=== PATIENT | female | born 1965 | race African-American/Black ===

== ENCOUNTER 2019-06-09 18:30 | Emergency (ER) | payer OTHER ==
[2019-06-09 18:42] VITALS: BP 142/85; PULSE 74; TEMP 98.6; BMI 34.4
--- NOTE | 2019-06-09 18:46 | PDOC ---
History of Present Illness - General Chief Complaint: Blood Pressure Problem Stated Complaint: HYPERTENTION Time Seen by Provider: 06/09/19 18:44 History Source: Patient Exam Limitations: No Limitations - History of Present Illness Initial Comments: 06/09/19 18:55 Drink patient is here with complaints of right-sided face pain, earache pain and known dental pain. States had 2 teeth pulled on the left side of her mouth last week and had onset of pain and some mild swelling to her face today. Feels is probable posterior right lower molar causing some inflammation to the gums. No fever, no sore throat, no cough. Is this a multiple visit Asthma Patient?: No Timing/Duration: reports: getting worse, intermittent Past History - Travel Traveled outside of the country in the last 30 days: No Close contact w/someone who was outside of country & ill: No - Past Medical History Allergies/Adverse Reactions: Allergies Allergy/AdvReac Type Severity Reaction Status Date / Time No Known Allergies Allergy Verified 06/09/19 18:42 Home Medications: Ambulatory Orders Fluticasone Propionate [Flovent Diskus] 100 mcg IH DAILY 06/14/16 Meloxicam 7.5 mg PO DAILY 06/14/16 Amoxicillin - [Amoxicillin 500mg Capsule -] 500 mg PO TID #21 capsule 06/09/19 Naproxen [Naprosyn -] 500 mg PO BID #30 tablet 06/09/19 Asthma: Yes COPD: No HTN: Yes Other medical history: arthritis - Psycho Social/Smoking Cessation Hx Smoking History: Never smoked Hx Alcohol Use: Yes (occasional) Drug/Substance Use Hx: No Review of Systems - Review of Systems Able to Perform ROS?: Yes Is the patient limited American proficient: Yes Constitutional: Yes: Symptoms Reported, See HPI, Malaise. No: Fever HEENTM: Yes: Symptoms Reported, See HPI, Ear Pain, Mouth Pain, Dental Problems Respiratory: Yes: See HPI. No: Symptoms reported : Yes: See HPI. No: Symptoms Reported Musculoskeletal: Yes: See HPI. No: Symptoms Reported All Other Systems: Reviewed and Negative *Physical Exam - Vital Signs Last Vital Signs Temp Pulse Resp BP Pulse Ox 98.6 F 74 18 142/85 99 06/09/19 18:38 06/09/19 18:38 06/09/19 18:38 06/09/19 18:38 06/09/19 18:38 - Physical Exam General Appearance: Yes: Nourished, Appropriately Dressed, Apparent Distress, Mild Distress, Moderate Distress HEENT: positive: EOMI, ZITA, Normal ENT Inspection, TMs Normal, Nasal Congestion , Other (Mild swelling and tenderness to the inferior outer aspect of right lower last molar. No fluctuance, no abscess but is tender to palpation. Has some mild swelling to the right lower cheek without palpable abscess.). 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 Will start on amoxicillin to cover potential early abscess/ infection and encourage continued NSAIDs. Patient will see dentist tomorrow Discharge - Discharge Information Problems reviewed: Yes Clinical Impression/Diagnosis: Toothache Condition: Stable Disposition: HOME - Admission No - Additional Discharge Information Prescriptions: Amoxicillin - [Amoxicillin 500mg Capsule -] 500 mg PO TID #21 capsule Naproxen [Naprosyn -] 500 mg PO BID #30 tablet - Follow up/Referral - Patient Discharge Instructions Patient Printed Discharge Instructions: DI for Dental Pain Additional Instructions: maddy [facility] AT [address] [address] [email or web address] PATIENT CARE: [phone] Rest, drink lots of fluids: Teas, water, soups Saltwater gargles/ keep mouth clean and rinse after each meal May use wet teabag for pain relief to area Avoid hard chewing foods, stick to ice cream, Jell-O, yogurt etc. Tylenol or Motrin for fever and pain Complete all medication as prescribed Seek dental appointment as soon as possible for evaluation of dental injury/pain Followup with private physician in one to 2 days as needed Return to emergency department for worsened symptoms, fevers, swelling to face or worsened pain - Post Discharge Activity Work/Back to School Note: Back to Work
[2019-06-09] MEDS ORDERED: KETOROLAC TROMETHAMINE 60 MG/2 ML VIAL IM ONE (18:53)
[2019-06-09] MEDS ORDERED: KETOROLAC TROMETHAMINE 60 MG/2 ML VIAL ONE (18:54)
== END 2019-06-09 19:06 | disposition home or self-care (01) ==
LOC: JERFT 18:30
PROC: 3E0233Z Introduction of Anti-inflammatory into Muscle, Percutaneous Approach (ICD-10-PCS; principal; 2019-06-09)
DX: K08.89 Other specified disorders of teeth and supporting structures (principal); I10 Essential (primary) hypertension; M12.9 Arthropathy, unspecified; Z87.09 Personal history of other diseases of the respiratory system
CPT/HCPCS: 96372; 99281-25